=== PATIENT | male | born 1970 | race Caucasian/White ===

== ENCOUNTER → 2016-10-22 | Outpatient (CLI) | payer OTHER | END | disposition home or self-care (01) | LOC: CFH 07:04 | PROVIDERS: ATTEND Nurse Practitioner Family | DX: K76.0 Fatty (change of) liver, not elsewhere classified (principal) | CPT/HCPCS: 76700 ==

== ENCOUNTER → 2016-11-11 | Outpatient (CLI) | payer OTHER ==
[~2016-11-11] MED LIST: CARI350T PO; DIAZ5TAB PO
[2016-11-11 16:53] LABS: BLOOD UREA NITROGEN 20 mg/dL (7-18)
[2016-11-11 16:55] LABS: ASPARTATE AMINO TRANSFERASE 16 U/L (15-37)
== END | disposition home or self-care (01) ==
LOC: LAB 16:29
PROVIDERS: ATTEND Nurse Practitioner Family
DX: R10.13 Epigastric pain (principal)
CPT/HCPCS: 36415; 80053; 82150; 83690; 85025

== ENCOUNTER → 2016-11-15 | Outpatient (CLI) | payer OTHER | LOC: STAR 14:54 | PROVIDERS: ATTEND Surgery | DX: Z02.9 Encounter for administrative examinations, unspecified (principal) ==

== ENCOUNTER 2016-11-22 06:41 | Day surgery (SDC) | payer OTHER ==
[~2016-11-22] VITALS: Ht 185.4 cm; Wt 89.9 kg
[2016-11-22] MEDS ORDERED: BUPIVACAINE/PF-EPI 0.5% 1:200K ONE (06:55)
[2016-11-22 07:42] VITALS: BP 128/83
[2016-11-22] MEDS ORDERED: LACTATED RINGERS 1,000 ML IV SCH (07:56)
[2016-11-22 07:58] LABS: DAU SCREEN DISCLAIMER
[2016-11-22] MEDS ORDERED: MIDAZOLAM 1 MG/ML, 2ML ONE (08:55)
[2016-11-22] MEDS ORDERED: FENTANYL PF 100 MCG/2ML ONE ×3 (08:55→09:59)
[2016-11-22] MEDS ORDERED: DEXAMETHASONE 4 MG/ML, 1ML ONE (08:58)
[2016-11-22] MEDS ORDERED: SUCCINYLCHOLINE 20 MG/ML, 10ML ONE (08:58)
[2016-11-22] MEDS ORDERED: CEFAZOLIN 1,000 MG ONE (08:58)
[2016-11-22] MEDS ORDERED: ONDANSETRON 2MG/ML, 2ML ONE (08:58)
[2016-11-22] MEDS ORDERED: PROPOFOL 10 MG/ML, 20ML ONE (08:58)
[2016-11-22] MEDS ORDERED: KETOROLAC 30 MG/1 ML ONE (08:58)
[2016-11-22] MEDS ORDERED: HYDROcodone/APAP 7.5-325MG/15ML UDC PO PRN (09:30)
[2016-11-22] MEDS ORDERED: MIDAZOLAM 1 MG/ML, 2ML IV PRN (09:30)
[2016-11-22] MEDS ORDERED: LABETALOL 5MG/ML, 20ML IV PRN (09:30)
[2016-11-22] MEDS ORDERED: hydrALAzine 20 MG/ML, 1ML IV PRN (09:30)
[2016-11-22] MEDS ORDERED: ONDANSETRON 2MG/ML, 2ML IVPush PRN (09:30)
[2016-11-22] MEDS ORDERED: EPHEDRINE 50 MG/ML, 1ML IVPush PRN (09:30)
[2016-11-22] MEDS ORDERED: MEPERIDINE/PF 25MG/0.5ML IVPush PRN (09:30)
[2016-11-22] MEDS ORDERED: OXYcodone 5 MG/5 ML ORAL.SOL UDC PO PRN (09:30)
[2016-11-22] MEDS ORDERED: ACETAMINOPHEN 325 MG TABLET PO PRN (09:30)
[2016-11-22] MEDS ORDERED: PROMETHAZINE 25 MG/ML, 1ML IV PRN (09:30)
[2016-11-22] MEDS ORDERED: HYDROmorphone 1 MG/ML, 1ML IV PRN (09:30)
[2016-11-22] MEDS ORDERED: OXYcodone 5 MG/5 ML ORAL.SOL UDC ONE (09:59)
[2016-11-22] MEDS ORDERED: ACETAMINOPHEN 650 MG/20.3 ML UDC ONE (09:59)
[2016-11-22] MEDS: FENTANYL PF 100 MCG/2ML IV PRN ×2 (10:02→10:14)
[2016-11-22] MEDS ORDERED: HYDROmorphone 1 MG/ML, 1ML ONE (10:26)
[2016-11-22] MEDS ORDERED: MORPHINE SULFATE 4 MG/ML, 1ML ONE (11:28)
== END 2016-11-22 12:20 | disposition home or self-care (01) ==
LOC: OUT 06:41
PROVIDERS: ATTEND Surgery
DX: K40.90 Unilateral inguinal hernia, without obstruction or gangrene, not specified as recurrent (principal)
CPT/HCPCS: 49505; 80307; C1781; J0330; J0690; J1100; J1170; J1885; J2250; J2405; J2704; J3010; J7120

== ENCOUNTER 2016-11-22 22:33 | Inpatient (IN) | payer OTHER ==
[~2016-11-22] VITALS: Ht 185.4 cm; Wt 92.6 kg
[2016-11-22] MEDS ORDERED: SODIUM CHLORIDE 0.9% 1,000 ML IV ONE (22:53)
[2016-11-22] MEDS ORDERED: SODIUM CHLORIDE FLUSH 10ML SYR IVF ONE (23:00)
[2016-11-22] MEDS ORDERED: ONDANSETRON 2MG/ML, 2ML IVPush ONE (23:00)
[2016-11-22 23:13] LABS: HEMATOCRIT 34.2 % (39.2-51.8); HEMOGLOBIN 11.4 g/dL (13.7-18.0); WHITE BLOOD COUNT 17.1 x10^3/uL (3.4-10)
[2016-11-22] MEDS ORDERED: HYDROmorphone 1 MG/ML, 1ML ONE (23:18)
[2016-11-22] MEDS ORDERED: ONDANSETRON 2MG/ML, 2ML ONE (23:18)
[2016-11-22 23:25] LABS: ASPARTATE AMINO TRANSFERASE 15 U/L (15-37); BLOOD UREA NITROGEN 15 mg/dL (7-18)
[2016-11-22] MEDS: HYDROmorphone 1 MG/ML, 1ML IVPush PRN (23:28)
[2016-11-23] MEDS ORDERED: OMNIPAQUE 350 MG/ML, 100ML BOTTLE ONE (00:04)
[2016-11-23] MEDS ORDERED: SODIUM CHLORIDE FLUSH 10ML SYR IVF PRN (01:00)
[2016-11-23] MEDS ORDERED: ONDANSETRON 2MG/ML, 2ML IVPush PRN (01:00)
[2016-11-23] MEDS ORDERED: HYDROmorphone 1 MG/ML, 1ML IVPush PRN (01:00)
[2016-11-23] MEDS ORDERED: SODIUM CHLORIDE 0.9%, 500ML IVBOLUS ONE (01:30)
[2016-11-23] MEDS ORDERED: FENTANYL PF 100 MCG/2ML ONE (01:59)
[2016-11-23] MEDS ORDERED: FENTANYL PF 100 MCG/2ML IVPush ONE (02:00)
[2016-11-23] MEDS: D5%-LACTATED RINGERS 1,000 ML IV SCH ×3 (02:59→17:55)
[2016-11-23 03:13] VITALS: BP 111/60
[2016-11-23 04:33] LABS: HEMATOCRIT 29.9 % (39.2-51.8); HEMOGLOBIN 10.2 g/dL (13.7-18.0)
[2016-11-23 06:46] VITALS: BP 120/72
[2016-11-23] MEDS: HYDROmorphone 1 MG/ML, 1ML IVPush PRN (07:30)
[2016-11-23 07:31] VITALS: BP 125/75
[2016-11-23 11:35] VITALS: BP 124/70
[2016-11-23] MEDS ORDERED: OXYcodone/APAP 10/325MG TABLET ONE (14:05)
[2016-11-23] MEDS ORDERED: HYDROmorphone 1 MG/ML, 1ML IV PRN (14:30)
[2016-11-23 14:51] VITALS: BP 113/66
[2016-11-23 17:41] LABS: HEMATOCRIT 28.1 % (39.2-51.8); HEMOGLOBIN 9.5 g/dL (13.7-18.0); WHITE BLOOD COUNT 10.7 x10^3/uL (3.4-10)
[2016-11-23] MEDS: OXYcodone/APAP 10/325MG TABLET PO PRN ×2 (17:52→21:59)
[2016-11-23 19:54] VITALS: BP 127/70
[2016-11-24] MEDS: OXYcodone/APAP 10/325MG TABLET PO PRN ×6 (01:59→22:07)
[2016-11-24 02:08] VITALS: BP 118/67
[2016-11-24 06:57] LABS: HEMATOCRIT 27.2 % (39.2-51.8); HEMOGLOBIN 9.2 g/dL (13.7-18.0); WHITE BLOOD COUNT 9.4 x10^3/uL (3.4-10)
[2016-11-24 07:05] VITALS: BP 124/69
[2016-11-24 14:24] VITALS: BP 110/65
[2016-11-24 19:26] VITALS: BP 111/69
[2016-11-25] MEDS: OXYcodone/APAP 10/325MG TABLET PO PRN ×2 (02:05→06:09)
[2016-11-25 02:11] VITALS: BP 118/73
[2016-11-25 06:38] LABS: HEMATOCRIT 27.2 % (39.2-51.8); WHITE BLOOD COUNT 8.7 x10^3/uL (3.4-10)
== END 2016-11-25 09:11 | disposition home or self-care (01) | DRG 920 ==
LOC: ED 23:59 → EDIP 11-23 01:42 → 4NOR 11-23 02:17 → DCLOUNGE 11-25 09:03
PROVIDERS: ADMIT Surgery; ATTEND Surgery
DX: K91.841 Postprocedural hemorrhage of a digestive system organ or structure following other procedure (principal); R71.0 Precipitous drop in hematocrit; R58 Hemorrhage, not elsewhere classified; Y83.8 Other surgical procedures as the cause of abnormal reaction of the patient, or of later complication, without mention of misadventure at the time of the procedure; I70.0 Atherosclerosis of aorta; Z87.891 Personal history of nicotine dependence
CPT/HCPCS: 36415; 71010; 74177; 80053; 83690; 85014; 85018; 85025; 86850; 86900; 86923; 96361; 96374; 96375; J1170; J2405; J3010; Q9967; J7030; J7040; J7121

== ENCOUNTER 2016-11-25 19:15 | Inpatient (IN) | payer OTHER ==
[~2016-11-25] VITALS: Ht 185.4 cm; Wt 88.9 kg
[2016-11-25] MEDS ORDERED: SODIUM CHLORIDE FLUSH 10ML SYR IVF ONE (19:30)
[2016-11-25 19:50] LABS: HEMATOCRIT 30.5 % (39.2-51.8); HEMOGLOBIN 10.4 g/dL (13.7-18.0); WHITE BLOOD COUNT 8.3 x10^3/uL (3.4-10)
[2016-11-25 19:56] LABS: ASPARTATE AMINO TRANSFERASE 20 U/L (15-37); BLOOD UREA NITROGEN 9 mg/dL (7-18)
[2016-11-25] MEDS ORDERED: SODIUM CHLORIDE 0.9% 1,000 ML IV ONE (22:14)
[2016-11-25] MEDS ORDERED: MORPHINE SULFATE 4 MG/ML, 1ML IVPush PRN (22:30)
[2016-11-25] MEDS ORDERED: OMNIPAQUE 350 MG/ML, 100ML BOTTLE ONE (22:35)
[2016-11-25] MEDS ORDERED: ONDANSETRON 2MG/ML, 2ML IVPush PRN (23:30)
[2016-11-25] MEDS ORDERED: BISACODYL 10 MG SUPP PR PRN (23:30)
[2016-11-25] MEDS ORDERED: POLYETHYLENE GLYCOL 17 GM PACKET PO PRN (23:30)
[2016-11-25] MEDS: morphine SULFATE 10 MG/ML, 1ML IVPush PRN (23:49)
[2016-11-25] MEDS: ACETAMINOPHEN 325 MG TABLET PO PRN (23:49)
[2016-11-25] MEDS: ERTAPENEM 1 GM in SODIUM CHLORIDE 0.9% 50 ML IV SCH (23:56)
[2016-11-25] MEDS: SODIUM CHLORIDE 0.9% 1,000 ML IV SCH (23:56)
[2016-11-26 00:23] VITALS: BP 131/78
[2016-11-26] MEDS: CARISOPRODOL 350 MG TABLET PO SCH ×3 (00:39→20:19)
[2016-11-26 03:34] VITALS: BP 121/77
[2016-11-26 05:46] LABS: HEMATOCRIT 28.8 % (39.2-51.8); HEMOGLOBIN 9.8 g/dL (13.7-18.0); WHITE BLOOD COUNT 7.2 x10^3/uL (3.4-10)
[2016-11-26 05:49] LABS: ASPARTATE AMINO TRANSFERASE 16 U/L (15-37); BLOOD UREA NITROGEN 9 mg/dL (7-18)
[2016-11-26 07:23] VITALS: BP 125/79
[2016-11-26] MEDS: ACETAMINOPHEN 325 MG TABLET PO PRN ×2 (07:43→17:09)
[2016-11-26] MEDS: SENNA/DOCUSATE TABLET PO SCH (08:21)
[2016-11-26] MEDS: morphine SULFATE 10 MG/ML, 1ML IVPush PRN ×5 (08:21→23:31)
[2016-11-26] MEDS: DIAZEPAM 5 MG TABLET PO SCH (08:21)
[2016-11-26 13:30] VITALS: BP 127/74
[2016-11-26] MEDS: SODIUM CHLORIDE 0.9% 1,000 ML IV SCH (17:38)
[2016-11-26 20:35] VITALS: BP 145/92
[2016-11-26] MEDS: ERTAPENEM 1 GM in SODIUM CHLORIDE 0.9% 50 ML IV SCH (23:31)
[2016-11-27 02:17] VITALS: BP 114/74
[2016-11-27] MEDS: SODIUM CHLORIDE 0.9% 1,000 ML IV SCH ×2 (05:14→13:33)
[2016-11-27] MEDS: morphine SULFATE 10 MG/ML, 1ML IVPush PRN ×4 (05:18→16:38)
[2016-11-27 05:43] LABS: HEMATOCRIT 29.1 % (39.2-51.8); HEMOGLOBIN 9.8 g/dL (13.7-18.0); WHITE BLOOD COUNT 7.1 x10^3/uL (3.4-10)
[2016-11-27 05:49] LABS: BLOOD UREA NITROGEN 19 mg/dL (7-18)
[2016-11-27 05:52] LABS: ASPARTATE AMINO TRANSFERASE 15 U/L (15-37)
[2016-11-27 08:13] VITALS: BP 118/72
[2016-11-27] MEDS: SENNA/DOCUSATE TABLET PO SCH (09:02)
[2016-11-27] MEDS: DIAZEPAM 5 MG TABLET PO SCH (09:04)
[2016-11-27] MEDS: CARISOPRODOL 350 MG TABLET PO SCH ×2 (09:04→19:58)
[2016-11-27] MEDS ORDERED: HYDROcodone/APAP 5/325 TABLET PO PRN (12:00)
[2016-11-27 13:36] VITALS: BP 122/80
[2016-11-27] MEDS: OXYcodone/APAP 10/325MG TABLET PO PRN (19:59)
[2016-11-27 20:34] VITALS: BP 125/77
[2016-11-27] MEDS: ERTAPENEM 1 GM in SODIUM CHLORIDE 0.9% 50 ML IV SCH (23:08)
[2016-11-28 00:48] VITALS: BP 119/73
[2016-11-28] MEDS: OXYcodone/APAP 10/325MG TABLET PO PRN ×4 (03:29→16:32)
[2016-11-28] MEDS: SODIUM CHLORIDE 0.9% 1,000 ML IV SCH (04:34)
[2016-11-28 05:37] LABS: HEMATOCRIT 27.1 % (39.2-51.8); HEMOGLOBIN 9.2 g/dL (13.7-18.0)
[2016-11-28 06:37] LABS: BLOOD UREA NITROGEN 19 mg/dL (7-18)
[2016-11-28] MEDS: CARISOPRODOL 350 MG TABLET PO SCH (07:50)
[2016-11-28] MEDS: DIAZEPAM 5 MG TABLET PO SCH (07:51)
[2016-11-28] MEDS: SENNA/DOCUSATE TABLET PO SCH (07:51)
[2016-11-28 09:00] VITALS: BP 123/74
[2016-11-28 13:57] VITALS: BP 129/82
[2016-11-28] MEDS ORDERED: SODIUM CHLORIDE 0.9% 1,000 ML IV SCH (15:00)
[2016-11-28] MEDS ORDERED: ONDANSETRON 2MG/ML, 2ML IVPush PRN (15:00)
[2016-11-28] MEDS ORDERED: BISACODYL 10 MG SUPP PR PRN (15:00)
[2016-11-28] MEDS ORDERED: ACETAMINOPHEN 325 MG TABLET PO PRN (15:00)
[2016-11-28] MEDS ORDERED: HYDROcodone/APAP 5/325 TABLET PO PRN (15:00)
[2016-11-28] MEDS ORDERED: POLYETHYLENE GLYCOL 17 GM PACKET PO PRN (15:00)
[2016-11-28] MEDS ORDERED: POLY17PO5 PO (16:33)
[2016-11-28] MEDS ORDERED: CEFD300C37 PO (16:33)
[2016-11-28] MEDS ORDERED: METR500T PO (16:33)
[2016-11-28] MEDS ORDERED: OXYC1TAB9 PO (16:33)
[2016-11-28] MEDS ORDERED: TRAM50TA2 PO (16:33)
[2016-11-28] MEDS ORDERED: LACT1CAP24 PO (16:48)
[2016-11-29] MEDS ORDERED: DIAZEPAM 5 MG TABLET PO SCH (09:00)
== END 2016-11-28 17:25 | disposition home or self-care (01) | DRG 372 ==
LOC: ED 21:25 → EDIP 22:34 → 4NOR 23:23
DX: K65.0 Generalized (acute) peritonitis (principal); R65.10 Systemic inflammatory response syndrome (SIRS) of non-infectious origin without acute organ dysfunction; I95.9 Hypotension, unspecified; D64.9 Anemia, unspecified; F12.90 Cannabis use, unspecified, uncomplicated; G89.29 Other chronic pain; M54.9 Dorsalgia, unspecified; K59.00 Constipation, unspecified; Z83.3 Family history of diabetes mellitus; Z87.891 Personal history of nicotine dependence
CPT/HCPCS: 36415; 71020; 74177; 80048; 80053; 81003; 83605; 84145; 85014; 85018; 85025; 87040; J1335; Q9967; J2270; J7030

== ENCOUNTER → 2017-05-05 | Outpatient (CLI) | payer OTHER ==
[~2017-05-05] MED LIST changes: +CEFD300C37 PO; +LACT1CAP24 PO; +METR500T PO; +OXYC1TAB9 PO; +POLY17PO5 PO; +TRAM50TA2 PO
== END | disposition home or self-care (01) ==
LOC: CVU 09:48
PROVIDERS: ATTEND Internal Medicine Cardiovascular Disease
DX: I42.9 Cardiomyopathy, unspecified (principal); I25.2 Old myocardial infarction
CPT/HCPCS: 93306

== ENCOUNTER → 2017-05-12 | Outpatient (CLI) | payer OTHER ==
[~2017-05-12] MED LIST changes: +REGADENOSON 0.4 MG/5 ML SYRINGE ONE
== END | disposition home or self-care (01) ==
LOC: RAD 11:41
PROVIDERS: ATTEND Internal Medicine Cardiovascular Disease
DX: I42.9 Cardiomyopathy, unspecified (principal)
CPT/HCPCS: 78452; 93017; A9502; J2785

== ENCOUNTER → 2017-08-04 | Outpatient (CLI) | payer OTHER ==
[~2017-08-04] MED LIST changes: -REGADENOSON 0.4 MG/5 ML SYRINGE ONE
== END | disposition home or self-care (01) ==
LOC: CFH 13:54
PROVIDERS: ATTEND Psychiatry & Neurology Neurology
DX: M51.17 Intervertebral disc disorders with radiculopathy, lumbosacral region (principal)
CPT/HCPCS: 72148